=== PATIENT | female | born 1990 | race Caucasian/White ===

== ENCOUNTER → 2016-10-21 | Outpatient (REF) | payer OTHER ==
[~2016-10-21] MED LIST: ACET50TA PO; IBUP-1114 PO; PRENTAB9 PO
== END ==
LOC: M LAB REF 13:06
PROVIDERS: ATTEND Advanced Practice Midwife
DX: Z34.83 Encounter for supervision of other normal pregnancy, third trimester (principal)

== ENCOUNTER 2016-10-24 06:03 | Inpatient (IN) | payer OTHER ==
[~2016-10-24] VITALS: Ht 165.1 cm; Wt 107.0 kg
[2016-10-24] MEDS ORDERED: LR 1,000 ML IV SCH (06:26)
[2016-10-24] MEDS ORDERED: LACTATED RINGER'S 1000 ML IV STA (06:26)
[2016-10-24] MEDS ORDERED: PRENTAB9 PO (06:52)
[2016-10-24] MEDS ORDERED: OXYTOCIN 30 UNITS IN 0.9% NaCl 500ML IV BAG (J2590) As Ordered ONE (07:27)
[2016-10-24] MEDS ORDERED: OXYTOCIN DRIP 30 UNITS in APPROPRIATE DILUENT 1 EA IV SCH (07:56)
[2016-10-24] MEDS ORDERED: MEASLES,MUMPS,RUBELLA VACCINE INJ (MMR-II) (90707) SC SCH (08:00)
[2016-10-24] MEDS ORDERED: IBUPROFEN 800 MG TAB PO PRN (08:00)
[2016-10-24] MEDS ORDERED: RHOGAM 300 MCG (1500 IU) INJ (J2790) IM SCH (08:00)
[2016-10-24] MEDS ORDERED: METHYLERGONOVINE MALEATE 0.2 MG TAB PO PRN (08:00)
[2016-10-24] MEDS ORDERED: ANUSOL HC CREAM 30GM TOP PRN (08:00)
[2016-10-24] MEDS ORDERED: DIBUCAINE 1% OINTMENT 30GM TOP PRN (08:00)
[2016-10-24] MEDS ORDERED: ACETAMINOPHEN 500 MG TAB PO PRN (08:00)
[2016-10-24] MEDS ORDERED: DOCUSATE SODIUM 100 MG CAP PO PRN (08:00)
[2016-10-24] MEDS ORDERED: MOM 30ML SUSPENSION UDC PO PRN (08:00)
[2016-10-24] MEDS: PRENATAL VITAMIN TAB PO SCH (09:00)
--- NOTE | 2016-10-24 09:03 | DN ---
DATE OF DELIVERY: 10/24/2016 TIME OF : 0725 hours. GENDER: Male. SCORES: 9 and 9. WEIGHT: 6 pounds 1 ounce or 2762 grams. LACERATIONS: None. ESTIMATED BLOOD LOSS: 300 mL. ANESTHESIA: None. COUNTS: Five laparotomy sponges accounted for prior to and after delivery. DELIVERY NOTE: On October 24, 2016 at 0725 hours, Mrs. Gomez a 26-year-old 5, now para 3, had a spontaneous vaginal delivery of a live born male infant, scores of 9 and 9, weight 6 pounds 1 ounce or 2762 grams. Head was delivered OP over an intact perineum followed by delivery of shoulders and corpus. Infant was then handed to the mom with good cry. Cord was clamped times two and cut. Cord blood was obtained. Placenta was drained and delivered grossly intact. A premixed bag of 500 mL of normal saline with 30 units of pitocin was bolused along with uterine massage. The uterus was firm. On inspection, the cervix, vagina and perineum was grossly intact and hemostatic. Mom and baby were recovering in stable condition. This couple has decided to name their son
--- NOTE | 2016-10-24 09:04 | HPE ---
DATE OF ADMISSION: 10/24/2016 REASON FOR ADMISSION: Labor. HISTORY OF PRESENT ILLNESS: This patient is a 26-year-old, 5, para 2, who presents at 37 weeks 5 days estimated gestational age by 7 week ultrasound with complaints of contractions. She reports contractions throughout the day. She denies any vaginal bleeding or leakage of fluid. Her course was remarkable for transfer of care at 37 weeks from [facility] as well as smoking during the . PAST MEDICAL HISTORY: History of depression. PAST SURGICAL HISTORY: She has had tonsillectomy and adenoidectomy. PAST OBSTETRICAL HISTORY: She is a 5, para 2. She has had 2 term vaginal deliveries proven to 8 pounds 4 ounces. MEDICATIONS: vitamins. ALLERGIES: No known drug allergies. SOCIAL HISTORY: She has smoked throughout the . PHYSICAL EXAMINATION: Vital signs are stable. She is afebrile. She has a category 1 heart tracing with contractions on the tocometer. General Appearance: Well appearing in no acute distress. Lungs are clear to auscultation bilaterally. Cardiovascular: Heart regular rate and rhythm. Abdomen soft. Gravid. Nontender. Cervical Exam: She is 8 cm dilated, completely effaced, 0 station. LABS: Blood type O positive. Antibody screen negative. Rubella immune. RPR nonreactive. Hepatitis surface antigen is negative. Hepatitis C is nonreactive. Chlamydia and gonorrhea screens are negative. She had a normal three hour glucose tolerance test. She is GBS positive. ASSESSMENT: 1. This patient is a 26-year-old, 5, para 3, at 37 weeks 4 days in active labor. 2. Reassuring status. PLAN: 1. Admit to labor and delivery, CBC, RPR and type screen. 2. Antibiotics for GBS positive. 3. Anticipate spontaneous vaginal delivery.
[2016-10-24 10:10] VITALS: BP 123/83
[2016-10-24 18:22] VITALS: BP 137/94
[2016-10-25 05:59] VITALS: BP 133/79
[2016-10-25] MEDS ORDERED: ACET50TA PO (08:13)
[2016-10-25] MEDS ORDERED: IBUP-1114 PO (08:13)
[2016-10-25] MEDS: PRENATAL VITAMIN TAB PO SCH (08:44)
== END 2016-10-25 13:45 | disposition home or self-care (01) | DRG 775 ==
LOC: M LDO 06:03 → M LDI 06:16 → M OBS 10:00
PROVIDERS: ADMIT Obstetrics & Gynecology; ATTEND Obstetrics & Gynecology
PROC: 10E0XZZ Delivery of Products of Conception, External Approach (ICD-10-PCS; principal; 2016-10-24)
DX: O99.334 Smoking (tobacco) complicating childbirth (principal); F17.210 Nicotine dependence, cigarettes, uncomplicated; O99.824 Streptococcus B carrier state complicating childbirth; Z3A.37 37 weeks gestation of pregnancy; Z37.0 Single live birth